=== PATIENT | female | born 1965 ===

== ENCOUNTER → 2023-05-26 | Outpatient (CLI) | payer SELFPAY ==
[2023-05-29 04:02] LABS: VARICELLA-ZOSTER VIRUS BY PCR Not Detected; VARICELLA-ZOSTER VIRUS SOURCE left lid
[2023-05-29 07:20] LABS: HSV 1 SUBTYPE BY PCR Not Detected; HSV 2 SUBTYPE BY PCR Not Detected; HSV SUBTYPE SOURCE left lid
== END ==
LOC: LAB 08:32 → LAB SHORT 08:32
PROVIDERS: Physician Assistant Medical
DX: H00.015 Hordeolum externum left lower eyelid (principal)
CPT/HCPCS: 87070; 87205; 87529; 87798